=== PATIENT | female | born 1940 ===

== ENCOUNTER 2021-12-20 08:13 | Outpatient (CLI) | payer MEDICARE, SELFPAY ==
--- NOTE | 2021-12-20 08:00 | RT.EKG_ITS ---
APPROVED REPORT Exam: Resting ECG Reason for Exam: HF Patient Location: O HR:88 bpm ECG Measurements Heart Rate 88 AXIS CO 146 P 76 QRSd 79 QRS 7 QT 365 T 31 QTc 442 Conclusion Sinus rhythm...normal P axis, V-rate 50- 99
== END 2021-12-20 08:14 | disposition home or self-care (01) ==
LOC: DI.CARD 08:14
PROVIDERS: PCP Physician Assistant Medical; Visit Provider Internal Medicine Cardiovascular Disease
DX: I10 Essential (primary) hypertension (principal); I50.30 Unspecified diastolic (congestive) heart failure
CPT/HCPCS: 93010

== ENCOUNTER → 2021-12-20 12:50 | Outpatient (BNVA) | payer MEDICARE, SELFPAY | PROVIDERS: PCP Physician Assistant Medical; Referring Provider Physician Assistant Medical; Visit Provider Internal Medicine Cardiovascular Disease | DX: I10 Essential (primary) hypertension (principal); G70.00 Myasthenia gravis without (acute) exacerbation; I27.20 Pulmonary hypertension, unspecified; I51.89 Other ill-defined heart diseases; I50.30 Unspecified diastolic (congestive) heart failure | CPT/HCPCS: 93005; 99203 ==

== ENCOUNTER 2024-04-25 01:54 | Outpatient (RCR) | payer MEDICARE, SELFPAY ==
[2024-04-25] MEDS: RAVULIZUMAB-CWVZ 3,300 MG, Normal Saline 33 ML in EMPTY EVACUATED CONTAINER 1 EACH 95 MG IVPB (10:33)
[2024-04-25] MEDS: Normal Saline Flush 10 ML SYR IVP (10:33)
== END 2024-04-28 23:59 | disposition home or self-care (01) ==
LOC: INF 01:54
PROVIDERS: PCP Physician Assistant Medical; Visit Provider Nurse Practitioner Acute Care
DX: G70.00 Myasthenia gravis without (acute) exacerbation (principal)
CPT/HCPCS: 96365; J1303

== ENCOUNTER 2024-06-17 00:57 | Outpatient (RCR) | payer MEDICARE, SELFPAY ==
[2024-06-17] MEDS: RAVULIZUMAB-CWVZ 3,300 MG, Normal Saline 33 ML in EMPTY EVACUATED CONTAINER 1 EACH 95 MG IVPB (12:19)
[2024-06-17] MEDS: Normal Saline Flush 10 ML SYR IVP (12:21)
== END 2024-06-28 23:59 | disposition home or self-care (01) ==
LOC: INF 00:57
PROVIDERS: PCP Physician Assistant Medical; Visit Provider Nurse Practitioner Acute Care
DX: G70.00 Myasthenia gravis without (acute) exacerbation (principal)
CPT/HCPCS: 96365; J1303

== ENCOUNTER 2024-08-08 02:26 | Outpatient (RCR) | payer MEDICARE, SELFPAY ==
[2024-08-08] MEDS: RAVULIZUMAB-CWVZ 3,300 MG, Normal Saline 33 ML in EMPTY EVACUATED CONTAINER 1 EACH 95 MG IVPB (10:06)
[2024-08-08] MEDS: Normal Saline Flush 10 ML SYR IVP (10:06)
== END 2024-08-26 23:59 | disposition home or self-care (01) ==
LOC: INF 02:26
PROVIDERS: PCP Physician Assistant Medical; Visit Provider Nurse Practitioner Acute Care
DX: G70.00 Myasthenia gravis without (acute) exacerbation (principal)
CPT/HCPCS: 96365; J1303

== ENCOUNTER 2024-10-03 03:04 | Outpatient (RCR) | payer MEDICARE, SELFPAY ==
[2024-10-03] MEDS: RAVULIZUMAB-CWVZ 3,300 MG, Normal Saline 33 ML in EMPTY EVACUATED CONTAINER 1 EACH 95 MG IVPB (10:27)
[2024-10-03] MEDS: Normal Saline Flush 5 ML SYR IVP (10:28)
[2024-10-03 11:02] LABS: Hemoglobin A1C 5.8 % (<5.7)
== END 2024-10-26 23:59 | disposition home or self-care (01) ==
LOC: INF 03:04
PROVIDERS: Psychiatry & Neurology Neurology; PCP Physician Assistant Medical; Visit Provider Nurse Practitioner Acute Care
DX: G70.00 Myasthenia gravis without (acute) exacerbation (principal); Z79.52 Long term (current) use of systemic steroids; R73.03 Prediabetes
CPT/HCPCS: 36415; 96365; 83036; J1303

== ENCOUNTER 2024-11-28 03:40 | Outpatient (RCR) | payer MEDICARE, SELFPAY ==
[2024-11-28] MEDS: Normal Saline Flush 10 ML SYR IVP (10:42)
[2024-11-28] MEDS: RAVULIZUMAB-CWVZ 3,300 MG, Normal Saline 33 ML in EMPTY EVACUATED CONTAINER 1 EACH 95 MG IVPB (10:42)
== END 2024-11-28 08:03 ==
LOC: INF 03:40
PROVIDERS: PCP Physician Assistant Medical; Visit Provider Nurse Practitioner Acute Care
DX: G70.00 Myasthenia gravis without (acute) exacerbation (principal)
CPT/HCPCS: 96365; J1303

== ENCOUNTER 2025-01-23 02:52 | Outpatient (CLI) | payer MEDICARE, SELFPAY ==
[2025-01-23] MEDS: RAVULIZUMAB-CWVZ 3,300 MG, Normal Saline 33 ML in EMPTY EVACUATED CONTAINER 1 EACH 95 MG IVPB (10:21)
[2025-01-23] MEDS: Normal Saline Flush 10 ML SYR IVP (11:24)
== END 2025-01-23 15:36 ==
PROVIDERS: PCP Physician Assistant Medical; Visit Provider Nurse Practitioner Acute Care
DX: G70.00 Myasthenia gravis without (acute) exacerbation (principal)
CPT/HCPCS: 96365; J1303

== ENCOUNTER 2025-03-27 03:50 | Outpatient (CLI) | payer MEDICARE, SELFPAY ==
[2025-03-27] MEDS: Normal Saline Flush 10 ML SYR IVP (10:30)
[2025-03-27] MEDS: RAVULIZUMAB-CWVZ 3,300 MG, Normal Saline 33 ML in EMPTY EVACUATED CONTAINER 1 EACH 95 MG IVPB (10:30)
== END 2025-03-27 03:51 | disposition home or self-care (01) ==
LOC: INF 03:51
PROVIDERS: PCP Physician Assistant Medical; Visit Provider Nurse Practitioner Acute Care
DX: G70.00 Myasthenia gravis without (acute) exacerbation (principal)
CPT/HCPCS: 96365; J1303

== ENCOUNTER 2025-05-22 03:21 | Outpatient (CLI) | payer MEDICARE, SELFPAY ==
[2025-05-22] MEDS: RAVULIZUMAB-CWVZ 3,300 MG, Normal Saline 33 ML in EMPTY EVACUATED CONTAINER 1 EACH 95 MG IVPB (11:10)
[2025-05-22] MEDS: Normal Saline Flush 10 ML SYR IVP (11:10)
== END 2025-05-22 03:22 | disposition home or self-care (01) ==
LOC: INF 03:21
PROVIDERS: PCP Physician Assistant Medical; Visit Provider Nurse Practitioner Acute Care
DX: G70.00 Myasthenia gravis without (acute) exacerbation (principal)
CPT/HCPCS: 96365; J1303